=== PATIENT | female | born 1985 | race Caucasian/White ===

== ENCOUNTER 2023-10-15 21:54 | Outpatient (REF) | payer BC, SELFPAY ==
[2023-10-20 15:08] LABS: Age Gdln ACOG Testing Note (.); HPV Aptima Negative (Negative); IGP, Aptima HPV, rfx 16/18,45 Note (.)
== END 2023-10-15 21:55 | disposition home or self-care (01) ==
LOC: LAB 21:54
PROVIDERS: PCP Nurse Practitioner; Visit Provider Obstetrics & Gynecology
DX: Z01.419 Encounter for gynecological examination (general) (routine) without abnormal findings (principal)
CPT/HCPCS: 87624; G0145

== ENCOUNTER 2023-10-16 09:54 | Outpatient (OUT) | payer BC, SELFPAY ==
--- NOTE | 2023-10-16 | US_ITS ---
Patient Name: YOLI IYER MR#: [id number] : 1985 Exam Date: 10/16/2023 Ordering Doctor: JHONATAN HAZEL . RADIOLOGY REPORT PROCEDURE: MM TOMOSYNTHESIS DIAGNOSTIC BI, 10/16/2023, 10:04 US BREAST LT LIMITED, 10/16/2023, 10:38 COMPARISON: [facility] MAMM DIAGNOSTIC 3D DANNA CAD, 02/20/2021. INDICATIONS: left breast pain N64.4, fibrocystre changes lt breast N 60.1 Calculator Name NCI Breast Cancer Risk Assessment Tool 5 Year Breast Cancer Risk 0.40% Lifetime Breast Cancer Risk 11.20% Personal Breast Cancer No Personal Ovarian Cancer No Treatments None Family Cancers Daughter with rhabdomyosarcoma cancer at age 7; Mother with kidney cancer at age 60; Father with pancreas cancer at age 54; Grandmother-maternal with colon cancer at age ~55; Grandfather-paternal with lymphoma cancer at age ~62. LOCATION: [facility] BREAST COMPOSITION: Heterogeneously dense,which may obscure small masses. FINDINGS: DIAGNOSTIC CATEGORY 2--BENIGN FINDING. NO CHANGE FROM COMPARISON. The breasts are stable in size and overall fibroglandular configuration. RIGHT BREAST: No significant suspicious finding. LEFT BREAST: A triangle marker is identified in the upper-outer quadrant, anterior breast demarcating a palpable mass. No mammographic ultrasound. The technologist measured an area hypodensity this is felt to be normal fibroglandular tissue on the cine clips. Further evaluation should be based on clinical physical. RECOMMENDATIONS: CLINICAL EVALUATION. PLEASE NOTE: A NORMAL MAMMOGRAM DOES NOT EXCLUDE THE POSSIBILITY OF BREAST CANCER. A CLINICALLY SUSPICIOUS PALPABLE LUMP SHOULD BE BIOPSIED. Dictated by: Carlos Manuel Ag MD on 10/16/2023 at 11:08 Approved by: Carlos Manuel Ag MD on 10/16/2023 at 11:13
--- OUTSIDE RECORDS SUMMARY | 2023-10-16 09:57 | XMS_ITS | CCD ---
Author Name Unknown Address [address] [place] [address] Organization [facility] Care Team Providers Care Dope Maintenance Worker Name Role Phone SARAH ., DR HOWELL Admitting Unavailable SARAH ., DR HOWELL Consulting Unavailable SARAH ., DR HOWELL Attending Unavailable YAJAIRA ARBOLEDA Admitting Unavailable YAJAIRA ARBOLEDA Attending Unavailable Javi Soriano Consulting Unavailable YAJAIRA ARBOLEDA Consulting Unavailable Jeannette Segura Primary Care Physician [phone] Jeannette Segura Attending Unavailable Jenanette Segura Admitting Unavailable Jeannette Segura Attending Unavailable Allergies Allergy Classification Reported Allergen(s) Allergy Type Date of Onset Reaction(s) Facility (1 source) Penicillin Drug Allergy [facility] Repository (2 sources) Amoxicillin; Translations: [amoxicillin] Drug Allergy [facility] Medications Current Medications Medication Drug Class(es) Dates Sig (Normalized) Sig (Original) adapalene 0.001 mg/mg / benzoyl peroxide 0.025 mg/mg topical gel (1 source) Retinoid Start: 09-16-2023 apply 45 g topically once daily Epiduo Pump 0.1%-2.5% topical gel See Instructions, 45 gm, Refill(s) 1, Topical Daily, [id number], 162, cm, 09/16/23 9:17:00 EST, Height/Length Dosing, 71.3, kg, 09/16/23 9:17:00 EST, Weight Dosing Start Date: 09/16/23 Status: Ordered {84 (Ethinyl Estradiol 0.03 MG / Levonorgestrel 0.15 MG Oral Tablet) / 7 (Inert Ingredients 1 MG Oral Tablet) } Pack [Setlakin ] (1 source) Progestin, Estrogen, Progestin-containin g Intrauterine Device Start: 09-16-2023 take 1 tablet by mouth once daily Setlakin 0.15 mg-30 mcg oral tablet 1 tab(s), Oral, Daily, Refill(s) 0 Start Date: 09/16/23 Status: Ordered meloxicam 15 mg oral tablet (1 source) Nonsteroidal Anti-inflammatory Drug Start: 09-16-2023 take 1 tablet by mouth once daily meloxicam 15 mg Tab 15 mg = 1 tab(s), Oral, Daily, when needed, Refills(s) 0 Start Date: 09/16/23 Status: Ordered Problems Active Problems Problem Classification Problem Date Documented Da te Episodic/Chronic Malaise and fatigue (1 source) Fatigue 09-16-2023 Episodic Nonmalignant breast conditions (1 source) Fibrocystic change of left breast 09-16-2023 Chronic Other connective tissue disease (4 sources) Pain in left foot; Translations: [PAIN IN LEFT FOOT] Onset: 12-10-2022 Episodic Other skin disorders (1 source) Acne 09-16-2023 Episodic Unclassified (1 source) Pain of left breast 09-16-2023 Unclassified (3 sources) Patient encounter status 09-16-2023 Past or Other Problems Problem Classification Problem Date Documented Date Episodic/Chronic Immunizations and screening for infectious disease (1 source) Encounter for screening for human papillomavirus (HPV); Translations: [ENC SCREENING HUMAN PAPILLOMAVIRUS] Onset: 03-28-2022 Episodic Other screening for suspected conditions (not mental disorders or infectious disease) (4 sources) Encounter for screening for malignant neoplasm of cervix; Translations: [ENC SCREENING MALIG NEOPLASM CERV] Onset: 03-25-2022 Episodic Results Test Name Value Interpretation Reference Range Facility Ambulatory Visit Summaryon 1 11-17-2022 Ambulatory Visit Summary YOLI IYER :1985 Visit Date:09/16/2023 Ambulatory Visit Instructions Your Diagnosis BMI 27.0-27.9,adult Non-smoker Your Care Team Attending Physician - Jeannette Mina Primary Care Physician - Jeannette Mina This Is Your Medications List ethinyl estradiol-levonorges trel (Setlakin 0.15 mg-30 mcg oral tablet) meloxicam (meloxicam 15 mg Tab) Procedures Performed section, Surgery. Discharge Vitals Temperature (Tympanic) 36.8 ?C Heart Rate (Peripheral) 78 Respiratory Rate 14 Blood Pressure 126/80 Height 162 cm Height 64 in Weight 71.3 kg Weight 156.86 lb BMI 27.17 Medications What How Much When Instructions Unchanged ethinyl estradiol-levonorges trel (Setlakin 0.15 mg-30 mcg oral tablet) 1 Tablets By Mouth Every day Unchanged meloxicam (meloxicam 15 mg Tab) 1 Tablets By Mouth Every day when needed Allergies amoxicillin Patient Survey You may receive a survey via text or e-mail asking about your office visit. Please share your experience with us by completing your survey. We appreciate your feedback and thank you for choosing us for your care. Normal [facility] Auto Diffon 09-16-2023 Basophils/100 WBC (Bld) 0.7 % Normal 0.0-2.0 [facility] Comment on above: Order Comment: Order Added by Discern Expert. Performed By: #### 2 345704, 67104276, 0866536, 9570847, 8502623, 8269676 #### [facility] [address] [place] [address] Basophils/Leukocytes Auto (Bld) [Pure # fraction] 0.0 E9/L Normal 0.0-0.2 [facility] Comment on above: Order Comment: Order Added by Discern Expert. Performed By: #### 2 513331, 81597840, 4554357, 4100053, 6914006, 4587715 #### [facility] [address] [place] [address] Eosinophils/100 WBC (Bld) 1.6 % Normal 0.0-8.0 [facility] Comment on above: Order Comment: Order Added by Discern Expert. Performed By: #### 2 741014, 59467150, 3378526, 1482592, 5479397, 5490113 #### [facility] [address] [place] [address] Eosinophils/Leukocyte s Auto (Bld) [Pure # fraction] 0.1 E9/L Normal 0.0-0.5 [facility] Comment on above: Order Comment: Order Added by Discern Expert. Performed By: #### 2 766559, 94168925, 1053506, 9067120, 8820022, 7281835 #### [facility] [address] [place] [address] Lymphocytes/100 WBC (Bld) 35.6 % Normal 14.0-50.0 [facility] Comment on above: Order Comment: Order Added by Discern Expert. Performed By: #### 2 042692, 04463950, 2060825, 3176400, 7056758, 4051546 #### [facility] [address] [place] [address] Lymphocytes/Leukocyte s Auto (Bld) [Pure # fraction] 2.2 E9/L Normal 1.0-4.0 [facility] Comment on above: Order Comment: Order Added by Brandee Expert. Performed By: #### 2 870320, 67316960, 7452755, 5958541, 1190358, 3142515 #### [facility] [address] [place] [address] Monocytes/100 WBC (Bld) 9.0 % Normal 4.0-14.0 [facility] Comment on above: Order Comment: Order Added by Brandee Expert. Performed By: #### 2 747886, 23750290, 4689428, 6111089, 4916871, 9639421 #### [facility] [address] [place] [address] Monocytes/Leukocytes Auto (Bld) [Pure # fraction] 0.5 E9/L Normal 0.2-1.0 [facility] Comment on above: Order Comment: Order Added by Brandee Expert. Performed By: #### 2 339833, 64632213, 6268815, 0760325, 6317001, 1266146 #### [facility] [address] [place] [address] Neutrophils/100 WBC (Bld) 53.1 % Normal 36.0-75.0 [facility] Comment on above: Order Comment: Order Added by Brandee Expert. Performed By: #### 2 749425, 93023952, 5456003, 0439222, 4652026, 5576093 #### [facility] [address] [place] [address] Neutrophils/Leukocyte s Auto (Bld) [Pure # fraction] 3.2 E9/L Normal 2.0-7.5 [facility] Comment on above: Order Comment: Order Added by Discern Expert. Performed By: #### 2 322021, 69786592, 7335433, 5113826, 2662130, 1149630 #### [facility] [address] [place] [address] CBC w/ Auto Diffon 3 Erythrocyte distribution width (RBC) [Ratio] 13.6 % Normal 10.9-14.2 [facility] Comment on above: Performed By: #### 2 805800, 77100724, 1357712, 3091262, 8846777, 5737188 #### [facility] [address] [place] [address] Hematocrit (Bld) [Volume fraction] 41.5 % Normal 34.0-46.0 [facility] Comment on above: Performed By: #### 2 278655, 30276179, 0914804, 4827583, 2931036, 4940631 #### [facility] [address] [place] [address] Hemoglobin (Bld) [Mass/Vol] 13.9 g/dL Normal 12.0-16.0 [facility] Comment on above: Performed By: #### 2 584191, 62958893, 8655664, 3142412, 5428367, 9136190 #### [facility] [address] [place] [address] MCH (RBC) [Entitic mass] 29.2 pg Normal 27.0-34.0 [facility] Comment on above: Performed By: #### 2 420571, 42415955, 2525630, 2825058, 1693079, 2092442 #### [facility] [address] [place] [address] MCHC (RBC) [Mass/Vol] 33.4 g/dL Normal 31.4-36.0 [facility] Comment on above: Performed By: #### 2 963266, 70702047, 0509643, 7222350, 9462846, 2254231 #### [facility] [address] [place] [address] MCV (RBC) [Entitic vol] 87.6 fL Normal 80.0-100.0 [facility] Comment on above: Performed By: #### 2 848951, 16329896, 5937769, 1399925, 5578571, 9317821 #### [facility] [address] [place] [address] Platelet mean volume (Bld) [Entitic vol] 10.1 fL Normal 6.4-10.8 [facility] Comment on above: Performed By: #### 2 319784, 55550868, 7846216, 8498587, 5374906, 5017640 #### [facility] [address] [place] [address] Platelets (Bld) [#/Vol] 289.0 E9/L Normal 150.0-500.0 [facility] Comment on above: Performed By: #### 2 685337, 99297394, 9315223, 3212770, 6241894, 3983043 #### [facility] [address] [place] [address] 1939[address] RBC (Bld) [#/Vol] 4.7 E12/L Normal 4.3-5.9 [facility] Comment on above: Performed By: #### 2 833147, 75301986, 3229583, 4611194, 2273458, 1417827 #### [facility] [address] [place] [address] WBC corrected for nucl RBC Auto (Bld) [#/Vol] 6.1 E9/L Normal 4.0-11.0 [facility] Comment on above: Performed By: #### 2 637131, 89612594, 3859180, 7811917, 3992445, 1963587 #### [facility] [address] [place] [address] CHEMISTRYOrdered By: SYSTEM SYSTEM on 09-16-2023 Albumin [Mass/Vol] 4.7 g/dL Normal 3.3 - 5.0 gm/dL [facility] Albumin/Globulin [Mass ratio] 1.6 {ratio} Normal 1.1 - 2.2 [facility] Alk Phos 70 [iU]/d Normal 21 - 98 Int._Unit/L [facility] ALT 10 [iU]/d Normal 6 - 46 Int._Unit/L [facility] Anion gap [Moles/Vol] 10 mmol/L Normal 6 - 16 mEq/L R [facility] AST 15 [iU]/d Normal 5 - 43 Int._Unit/L [facility] Bili Total 0.4 mg/dL Normal 0.0 - 1.1 mg/dL [facility] Calcium [Mass/Vol] 9.7 mg/dL Normal 8.9 - 11. 1 mg/dL [facility] Chloride [Moles/Vol] 104 mmol/L Normal 101 - 1 11 mmol/L [facility] Cholesterol [Mass/Vol] 158 mg/dL Normal 120 - 200 mg/dL [facility] Cholesterol in HDL [Mass/Vol] 49 mg/dL Invalid Interpretation Code [facility] Comment on above: Result Comment: '>= 60 LOW RISK' '<= 40 HIGH RISK' Cholesterol in LDL [Mass/Vol] 110 mg/dL Normal <=129mg/dL [facility] Cholesterol in VLDL [Mass/Vol] 17 mg/dL Normal 7 - 40 mg/dL [facility] CO2 [Moles/Vol] 28 mmol/L Normal 21 - 31 mmol/L [facility] Creatinine [Mass/Vol] 0.8 mg/dL Normal 0.5 - 1.3 mg/dL [facility] eGFR mL/min/1.73 m2 Normal >=59mL/min/1. 73 m2 [facility] Globulin (S) [Mass/Vol] 3.0 g/dL Normal 1.4 - 4.0 gm/dL [facility] Glucose [Mass/Vol] 88 mg/dL Normal 55 - 199 mg/dL [facility] Potassium [Moles/Vol] 4.1 mmol/L Normal 3.5 - 5.3 mmol/L [facility] Protein [Mass/Vol] 7.7 g/dL Normal 6.0 - 7.8 gm/dL [facility] Sodium [Moles/Vol] 138 mmol/L Normal 135 - 145 mmol/L [facility] Triglyceride [Mass/Vol] 84 mg/dL Normal <=149mg/dL [facility] TSH Qn 3.22 m[IU]/L Normal 0.34 - 5.60 mcIU/mL [facility] Urea nitrogen [Mass/Vol] 10 mg/dL Normal 5 - 21 mg/dL [facility] Urea nitrogen/Creatinine [Mass ratio] 12 mg/mg Normal 10 - 20 [facility] CMPon 09-16-2023 Albumin [Mass/Vol] 4.7 g/dL Normal 3.3-5.0 [facility] Comment on above: Performed By: #### 2 917013, 35243360, 8461786, 0362950, 1908257, 4157318 #### [facility] [address] [place] [address] Albumin/Globulin [Mass ratio] 1.6 {ratio} Normal 1.1-2.2 [facility] Comment on above: Performed By: #### 2 596089, 48014534, 5260018, 4861194, 6454910, 7272246 #### [facility] [address] [place] [address] Alk Phos 70 Int._Unit/L Normal 21-98 [facility] Comment on above: Performed By: #### 2 122203, 25099232, 2573071, 8509096, 6845044, 1340946 #### [facility] [address] [place] [address] ALT 10 Int._Unit/L Normal 6-46 [facility] Comment on above: Performed By: #### 2 929894, 79518758, 4350763, 5190168, 7446998, 4945492 #### [facility] [address] [place] [address] Anion gap [Moles/Vol] 10 mmol/L Normal 6-16 [facility] Comment on above: Performed By: #### 2 518222, 82973840, 6305349, 2307450, 7585819, 0227122 #### [facility] [address] [place] [address] AST 15 Int._Unit/L Normal 5-43 [facility] Comment on above: Performed By: #### 2 578656, 30897835, 3486232, 6475579, 2759489, 5803886 #### [facility] [address] [place] [address] Bili Total 0.4 mg/dL Normal 0.0-1.1 [facility] Comment on above: Performed By: #### 2 146690, 85056174, 4817243, 0342891, 4737790, 3999939 #### [facility] [address] [place] [address] BUN/Creat Ratio 12 No Units Normal 10-20 [facility] Comment on above: Performed By: #### 2 357394, 58322034, 9165428, 3513467, 5927761, 7257536 #### [facility] [address] [place] [address] Calcium [Mass/Vol] 9.7 mg/dL Normal 8.9-11.1 [facility] Comment on above: Performed By: #### 2 860427, 67060222, 9872044, 3650273, 7545377, 5696107 #### [facility] [address] [place] [address] Chloride [Moles/Vol] 104 mmol/L Normal 101-111 [facility] Comment on above: Performed By: #### 2 848753, 12079909, 4824225, 1933147, 9914325, 2379462 #### [facility] [address] [place] [address] CO2 [Moles/Vol] 28 mmol/L Normal 21-31 [facility] Comment on above: Performed By: #### 2 708264, 04891017, 6352267, 5589022, 9188458, 0397752 #### [facility] [address] [place] [address] Creatinine [Mass/Vol] 0.8 mg/dL Normal 0.5-1.3 [facility] Comment on above: Performed By: #### 2 095592, 78649271, 1957257, 2281046, 7691657, 8936861 #### [facility] [address] [place] [address] Globulin (S) [Mass/Vol] 3.0 g/dL Normal 1.4-4.0 [facility] Comment on above: Performed By: #### 2 523707, 12016109, 7968568, 9559944, 1195679, 4688817 #### [facility] [address] [place] [address] Glucose [Mass/Vol] 88 mg/dL Normal 55-199 [facility] Comment on above: Performed By: #### 2 079083, 26157523, 5376626, 1201869, 3067745, 5209441 #### [facility] [address] [place] [address] Potassium [Moles/Vol] 4.1 mmol/L Normal 3.5-5.3 [facility] Comment on above: Performed By: #### 2 315635, 70695845, 3997899, 1498923, 7737184, 5931955 #### [facility] [address] [place] [address] Protein [Mass/Vol] 7.7 g/dL Normal 6.0-7.8 [facility] Comment on above: Performed By: #### 2 535316, 63090473, 9791874, 1984537, 3066040, 6716479 #### [facility] [address] [place] [address] Sodium [Moles/Vol] 138 mmol/L Normal 135-145 [facility] Comment on above: Performed By: #### 2 366838, 05973977, 1817348, 0998381, 4307714, 2708269 #### [facility] [address] [place] [address] Urea nitrogen [Mass/Vol] 10 mg/dL Normal 5-21 [facility] Comment on above: Performed By: #### 2 172344, 87006828, 2942039, 1384303, 8186077, 6102515 #### [facility] [address] [place] [address] Family Medicine Office/Clini c Noteon 09-16-2023 Family Medicine Office/Clinic Note HPI Staff Yoli is a 38 year old female presenting to [facility] Establish Care: History: Any previous diagnosis: History of seeing any specialist: When was your last doctors visit: Last provider: none in the last year Any recent labs: Dr Schwarz Health Maintenance UTD: Colonoscopy: no Mammogram: 2 years ago [facility] normal Pelvic/Pap: 2021 Dr Campbell Acute: Current issues/complaints: Left Breast intermittent ache ongoing for 2 months , previous mammogram was told they were dense 10 years: feels right lower quadrant pain radiating to right flank, has has multiple scan through [facility] and everything was normal and has been old she was full of stool. States she tries to take a daily stool softner History of Present Illness pt presents today for wellness visit. is also c/o fatigue and left sided breast pain Review of Systems PHQ Score Initial Depression Screen Score: 0 SCORE ROS - Provider Constitutional: no fever, no chills, no sweats, no fatigue Respiratory: no shortness of breath, no cough, no orthopnea, no wheezing. Cardiovascular: no chest pain, no palpitations, no edema. Neurologic: no headache, no dizziness, no numbness, no weakness. Physical Exam Vitals & Measurements T: 36.8 ?C(Tympanic) HR: 78(Peripheral) RR: 14 BP: 126/80 SpO2: 99% HT: 64 in HT: 162 cm WT: 71.3 kg WT: 156.86 lb BMI: 27.17 General: alert, no acute distress ENMT: oral mucosa moist, no pharyngeal erythema or exudate Cardiovascular: regular rate and rhythm, normal peripheral perfusion Respiratory: Lungs CTA, respirations non labored Extremities: no deformity, no trauma Neurological: oriented x 4, LOC appropriate for age, CN II-XII intact, motor strength equal & normal bilaterally, speech normal Assessment/Plan 1. Wellness examination (Z00.00: Encounter for general adult medical examination without abnormal findings) pt presents today for wellness visit and to establish care. pt has left breast pain. and lower abdominal pain. the abdominal pain has been worked up and she was told she has constipation issues. discussed changing her diet and taking stool softeners. will think about GI consult. all questions answered. RTC as needed Ordered: adapalene-benzoyl peroxide topical, See Instructions, 45 gm, Refill(s) 1, Topical Daily, [id number], 162, cm, 09/16/23 9:17:00 EST, Height/Length Dosing, 71.3, kg, 09/16/23 9:17:00 EST, Weight Dosing CBC w/ Auto Diff Comprehensive Metabolic Panel Lipid Panel Thyroid Stimulating Hormone 2. Fibrocystic changes of left breast (N60.12: Diffuse cystic mastopathy of left breast) pt breast tissue is very dense and she has noticed some changes of tissue on left side. order for mammogram provided and faxed to [facility] Ordered: adapalene-benzoyl peroxide topical, See Instructions, 45 gm, Refill(s) 1, Topical Daily, [facility][id number], 162, cm, 09/16/23 9:17:00 EST, Height/Length Dosing, 71.3, kg, 09/16/23 9:17:00 EST, Weight Dosing CBC w/ Auto Diff Comprehensive Metabolic Panel Lipid Panel Thyroid Stimulating Hormone 3. Breast pain, left (N64.4: Mastodynia) pt c/o left breast pain Ordered: adapalene-benzoyl peroxide topical, See Instructions, 45 gm, Refill(s) 1, Topical Daily, [facility][id number], 162, cm, 09/16/23 9:17:00 EST, Height/Length Dosing, 71.3, kg, 09/16/23 9:17:00 EST, Weight Dosing CBC w/ Auto Diff Comprehensive Metabolic Panel Lipid Panel Thyroid Stimulating Hormone 4. Acne (L70.9: Acne, unspecified) Ordered: adapalene-benzoyl peroxide topical, See Instructions, 45 gm, Refill(s) 1, Topical Daily, [facility] #[id number], 162, cm, 12/19/23 9:17:00 EST, Height/Length Dosing, 71.3, kg, 09/16/23 9:17:00 EST, Weight Dosing CBC w/ Auto Diff Comprehensive Metabolic Panel Lipid Panel Thyroid Stimulating Hormone 5. Fatigue (R53.83: Other fatigue) pt c/o worsening fatigue. labs drawn today Ordered: adapalene-benzoyl peroxide topical, See Instructions, 45 gm, Refill(s) 1, Topical Daily, [facility][id number], 162, cm, 09/16/23 9:17:00 EST, Height/Length Dosing, 71.3, kg, 09/16/23 9:17:00 EST, Weight Dosing CBC w/ Auto Diff Comprehensive Metabolic Panel Lipid Panel Thyroid Stimulating Hormone 6. Screening for hyperlipidemia (Z13.220: Encounter for screening for lipoid disorders) lipid panel drawn Ordered: adapalene-benzoyl peroxide topical, See Instructions, 45 gm, Refill(s) 1, Topical Daily, [facility] #[id number], 162, cm, 09/16/23 9:17:00 EST, Height/Length Dosing, 71.3, kg, 09/16/23 9:17:00 EST, Weight Dosing 7. Screening for thyroid disorder (Z13.29: Encounter for screening for other suspected endocrine disorder) TSH drawn today Ordered: adapalene-benzoyl peroxide topical, See Instructions, 45 gm, Refill(s) 1, Topical Daily, [facility] #[id number], 162, cm, 09/16/23 9:17:00 EST, Height/Length Dosing, 71.3, kg, 09/16/23 9:17:00 EST, Weight Dosing 8. BMI 27.0-27.9,adult (Z68.27: Body mass index [BMI] 27.0-27.9, adult) BMI education complete Ordered: adapalene-elis (more content not included)... [facility] Comment on above: Result Comment: Elec tronically Signed By: Jeannette Mina\.br\Date and Time Signed: 09/16/23 10:59 EST [employer] 09-16-2023 Forms [id number] #1.00TIFF [facility] HEMATOLOGYOrdered By: SYSTEM SYSTEM on 09-16-2023 Basophils/100 WBC (Bld) 0.7 % Normal 0.0 - 2.0 % [facility] Basophils/Leukocytes Auto (Bld) [Pure # fraction] 0.0 E9/L Normal 0.0 - 0.2 E9/L [facility] Eosinophils/100 WBC (Bld) 1.6 % Normal 0.0 - 8.0 % [facility] Eosinophils/Leukocyte s Auto (Bld) [Pure # fraction] 0.1 E9/L Normal 0.0 - 0.5 E9/L [facility] Lymphocytes/100 WBC (Bld) 35.6 % Normal 14.0 - 50.0 % [facility] Lymphocytes/Leukocyte s Auto (Bld) [Pure # fraction] 2.2 E9/L Normal 1.0 - 4.0 E9/L [facility] Monocytes/100 WBC (Bld) 9.0 % Normal 4.0 - 14.0 % [facility] Monocytes/Leukocytes Auto (Bld) [Pure # fraction] 0.5 E9/L Normal 0.2 - 1.0 E9/L [facility] Neutrophils/100 WBC (Bld) 53.1 % Normal 36.0 - 75.0 % [facility] Neutrophils/Leukocyte s Auto (Bld) [Pure # fraction] 3.2 E9/L Normal 2.0 - 7.5 E9/L [facility] HEMATOLOGYOrdered By: Angelito Trejo on 09-16-2023 Erythrocyte distribution width (RBC) [Ratio] 13.6 % Normal 10.9 - 14.2 % [facility] Hematocrit (Bld) [Volume fraction] 41.5 % Normal 34.0 - 46.0 % [facility] Hemoglobin (Bld) [Mass/Vol] 13.9 g/dL Normal 12.0 - 16.0 gm/dL [facility] MCH (RBC) [Entitic mass] 29.2 pg Normal 27.0 - 34.0 pg [facility] MCHC (RBC) [Mass/Vol] 33.4 g/dL Normal 31.4 - 36.0 gm/dL [facility] MCV (RBC) [Entitic vol] 87.6 fL Normal 80.0 - 100.0 fL [facility] Platelet mean volume (Bld) [Entitic vol] 10.1 fL Normal 6.4 - 10.8 fL [facility] Platelets (Bld) [#/Vol] 289.0 E9/L Normal 150.0 - 500.0 E9/L [facility] RBC (Bld) [#/Vol] 4.7 E12/L Normal 4.3 - 5.9 E12/L [facility] WBC corrected for nucl RBC Auto (Bld) [#/Vol] 6.1 E9/L Normal 4.0 - 11.0 E9/L [facility] Lipid Panelon 09-16-2023 Cholesterol [Mass/Vol] 158 mg/dL Normal 120-200 [facility] Comment on above: Performed By: #### 2 806672, 79697954, 3414643, 9716040, 6379778, 7817201 #### [facility] [address] [place] [address] Cholesterol in HDL [Mass/Vol] 49 mg/dL Invalid Interpretation Code [facility] Comment on above: Result Comment: '>= 60 LOW RISK' '<= 40 HIGH RISK' Performed By: #### 2 619167, 54365608, 5949388, 1815103, 2620099, 2349512 #### [facility] [address] [place] [address] Cholesterol in LDL [Mass/Vol] 110 mg/dL Normal <=129 [facility] Comment on above: Performed By: #### 2 597992, 02533798, 0164313, 9804700, 8551818, 8072627 #### [facility] [address] [place] [address] Cholesterol in VLDL [Mass/Vol] 17 mg/dL Normal 7-40 [facility] Comment on above: Performed By: #### 2 321303, 67387485, 9926798, 3459176, 8001027, 7285392 #### [facility] [address] [place] [address] Triglyceride [Mass/Vol] 84 mg/dL Normal <=149 [facility] Comment on above: Performed By: #### 2 255654, 26456646, 9087144, 6531932, 8151538, 2022197 #### [facility] [address] [place] [address] Physician Orderon 09-16-2023 Physician Order [id number] #[id number] Normal [facility] TSHon 09-16-2023 TSH Qn 3.22 m[IU]/L Normal 0.34-5.60 [facility] Comment on above: Performed By: #### 2 897385, 02762148, 2997552, 8432420, 9447125, 0626883 #### [facility] [address] [place] [address] eGFRon 09-16-2023 GFR/1.73 sq M.predicted among non-blacks MDRD (S/P/Bld) [Vol rate/Area] mL/min/{1.73_m2} Normal >=59 [facility] Comment on above: Order Comment: Order added by Discern Expert. Performed By: #### [id number] #### [facility] [address] [place] [address] PAP ACOG PANEL 2: 30 to 65on 03-28-2022 . . Normal [facility] Comment on above: Result Comment: Perf ormed at: WB Performed By: #### [id number] #### [facility] [address] [place] [address] Dr. Jovi Jones Age Gdln ACOG Testing 30-65 Normal [facility] Comment on above: Performed By: #### [id number] #### [facility] [address] [address] [address] Jovi Jones DIAGNOSIS: Comment Normal [facility] Comment on above: Result Comment: NEGA TIVE FOR INTRAEPITHELIAL LESION OR MALIGNANCY. Performed at: WB Performed By: #### [id number] #### [facility] [address] [place] [address] Dr. Jovi Jones HPV Aptima Negative Normal Negative [facility] Comment on above: Result Comment: This nucleic acid amplification test detects fourteen high-risk HPV types (16,18,31,33,35,39,45,51,52,56,58,59,66,68) without differentiation. Performed at: =G Performed By: #### [id number] #### [facility] [address] [place] [address] Dr. Jovi Jones Methodology: Comment Normal [facility] Comment on above: Result Comment: This liquid based ThinPrep(R) pap test was screened with the use of an image guided system. Performed at: WB Performed By: #### [id number] #### [facility] [address] [place] [address] Dr. Jovi Jones Note: Comment Normal [facility] Comment on above: Result Comment: The Pap smear is a screening test designed to aid in the detection of premalignant and malignant conditions of the uterine cervix. It is not a diagnostic procedure and should not be used as the sole means of detecting cervical cancer. Both false-positive and false-negative reports do occur. . Performed at: WB Performed By: #### [id number] #### [facility] [address] [place] [address] Dr. Jovi Jones Performed by: Comment Normal [facility] Comment on above: Result Comment: Emily Candelaria, Treatment Technician Performed at: WB Performed By: #### [id number] #### [facility] [address] [place] [address] Dr. Jovi Jones Specimen adequacy: Comment Normal [facility] Comment on above: Result Comment: Sati sfactory for evaluation. Endocervical and/or squamous metaplastic cells (endocervical component) are present. Performed at: WB Performed By: #### [id number] #### [facility] [address] [place] [address] Dr. Jovi Jones Encounters Encounter Date Encounter Type Care Provider Facility Start: 09-16-2023 End: 09-17-2023 [facility] Facility[facility] Start: 09-16-2023 End: 09-16-2023 Lab Drop off Jeannette L Imelda [facility] Start: 09-16-2023 End: 09-17-2023 ambulatory Jeannette L Imelda Facility:[facility] Start: 08-28-2023 ambulatory Jeannette Imelda Facility: [facility] Start: 12-10-2022 End: 12-11-2022 ambulatory YAJAIRA ARBOLEDA Facility: Start: 03-25-2022 End: 03-25-[address] DANTE SMITH . Facility:[facility] Procedures Date Procedure Procedure Detail Performing Clinician section Jeannette Imelda Comment on above: 2012 Surgery (qualifier value) Farrah di Imelda Comment on above: 2020 Immunizations Immunization Date Immunization Notes Care Provider Moris paul 04-20-2023 tetanus toxoid, redu neymar diphtheria toxoid, and acellular pertussis vaccine, adsorbed Jeannette Imelda [facility] 12-22-2012 tetanus toxoid, redu neymar diphtheria toxoid, and acellular pertussis vaccine, adsorbed Jeannette Imelda [facility] Payers Date Payer Category Payer Unknown [id number] 2.16.84 [id number] 1985 Unknown [id number] 2.16.84 [id number] 1985 Unknown [id number] 2.16.8 [id number] 1986 Unknown [id number] 2.16.8 [id number] 1986 Unknown [id number] 2.16.8 [id number] 1959 Unknown [id number] 1958 Unknown [id number] Social History Date Type Detail Facility Start: 09-16-2023 Tobacco smoking status Never s moked tobacco (finding) [facility] Tobacco smoking status Never Yeny [facility] Sex Assigned At Female [facility] Clinical Note 12-10-2022 Note Date & Type Note Facility 12-10-2022 Note PROCEDURE: XR FOOT L T MIN 3 VIEWS HISTORY: Pain in left foot ; chronic left heel pain COMPARISON: None. FINDINGS: BONES:No fracture, acute abnormality, or significant arthropathy. SOFT TISSUES:No visible soft tissue swelling. EFFUSION:None visible. OTHER: Negative. IMPRESSION: 1. No abnormal or suspicious findings to account for patient's symptoms. Electronically authenticated by: JAVI SORIANO Date: 2022-12-10 16:27 [facility] Evaluation + Plan note Note Date & Type Note [facility] Evaluation + Plan note No data available for this section [facility] Hospital Discharge instructions Note Date & Type Note Facility Hospital Discharge instructions No data available for this section [facility] Progress note Note Date & Type Note Facility Progress note No data available for this section [facility] Summary Purpose Family History No Family History Records Found No data available for this section No Family History Records Found Advance Directives No Advanced Directives Records FoundNo Advanced Directives Records Found Additional Source Comments INFORMATION SOURCE (unrecogn ized section and content) DATE CREATED AUTHOR 01/02/2023 [facility] DATE CREATED AUTHOR AUTHOR'S ORGANIZ ATION 09/17/2023 [facility] Patient Care team informatio n (unrecognized section and content) Personnel Name: Jeannette Mina Address: Address: [address] [place] [address]- FOR RECORDS PERTAINING TO PATIENTS WHO ARE OR HAVE BEEN ENROLLED IN A CHEMICAL DEPENDENCY/SUBSTANCEABUSE PROGRAM, SOME INFORMATION MAY BE OMITTED. This clinical summary was aggregated from multiple sources. Caution should be exercised in using it in the provision of clinical care. This summary normalizes information from multiple sources, and as a consequence, information in this document may materially change the coding, format and clinical context of patient data. In addition, data may be omitted in some cases. CLINICAL DECISIONS SHOULD BE BASED ON THE PRIMARY CLINICAL RECORDS. [facility] provides no warranty or guarantee of the accuracy or completeness of information in this document.
--- NOTE | 2023-10-16 10:01 | MM_ITS ---
Patient Name: YOLI IYER MR#: [id number] : 1985 Exam Date: 10/16/2023 Ordering Doctor: JHONATAN HAZEL . RADIOLOGY REPORT PROCEDURE: MM TOMOSYNTHESIS DIAGNOSTIC BI, 10/16/2023, 10:04 US BREAST LT LIMITED, 10/16/2023, 10:38 COMPARISON: MG MAMM DIAGNOSTIC 3D DANNA CAD, 02/20/2021. INDICATIONS: left breast pain N64.4, fibrocystre changes lt breast N 60.1 Calculator Name NCI Breast Cancer Risk Assessment Tool 5 Year Breast Cancer Risk 0.40% Lifetime Breast Cancer Risk 11.20% Personal Breast Cancer No Personal Ovarian Cancer No Treatments None Family Cancers Daughter with rhabdomyosarcoma cancer at age 7; Mother with kidney cancer at age 60; Father with pancreas cancer at age 54; Grandmother-maternal with colon cancer at age ~55; Grandfather-paternal with lymphoma cancer at age ~62. LOCATION: [facility] BREAST COMPOSITION: Heterogeneously dense,which may obscure small masses. FINDINGS: DIAGNOSTIC CATEGORY 2--BENIGN FINDING. NO CHANGE FROM COMPARISON. The breasts are stable in size and overall fibroglandular configuration. RIGHT BREAST: No significant suspicious finding. LEFT BREAST: A triangle marker is identified in the upper-outer quadrant, anterior breast demarcating a palpable mass. No mammographic ultrasound. The technologist measured an area hypodensity this is felt to be normal fibroglandular tissue on the cine clips. Further evaluation should be based on clinical physical. RECOMMENDATIONS: CLINICAL EVALUATION. PLEASE NOTE: A NORMAL MAMMOGRAM DOES NOT EXCLUDE THE POSSIBILITY OF BREAST CANCER. A CLINICALLY SUSPICIOUS PALPABLE LUMP SHOULD BE BIOPSIED. Dictated by: Carlos Manuel Ag MD on 10/16/2023 at 11:08 Approved by: Carlos Manuel Ag MD on 10/16/2023 at 11:13
== END 2023-10-16 09:55 | disposition home or self-care (01) ==
LOC: MAMMO 09:54
PROVIDERS: PCP Nurse Practitioner; Visit Provider Nurse Practitioner
DX: N64.4 Mastodynia (principal); N60.12 Diffuse cystic mastopathy of left breast; Z80.51 Family history of malignant neoplasm of kidney; Z80.0 Family history of malignant neoplasm of digestive organs; Z80.7 Family history of other malignant neoplasms of lymphoid, hematopoietic and related tissues; Z80.8 Family history of malignant neoplasm of other organs or systems
CPT/HCPCS: 76642; 77066; G0279

== ENCOUNTER 2024-10-20 19:16 | Outpatient (REF) | payer BC, SELFPAY ==
--- OUTSIDE RECORDS SUMMARY | 2024-10-20 19:20 | XMS_ITS | CCD ---
Author Organization [facility] Care Team Providers Care Press Assistant And Feeder Name Role Phone VISHAL ., DR HOWELL Admitting Unavailable VISHAL ., DR HOWELL Consulting Unavailable VISHAL ., DR HOWELL Attending Unavailable YAJAIRA ARBOLEDA Admitting Unavailable NKECHIYAJAIRA Attending Unavailable Javi Soriano Consulting Unavailable NKECHIYAJAIRA DONOVAN Consulting Unavailable Jeannette Segura Primary Care Physician [phone] DANTE RODGERS Attending Unavailable ImeldaJeannette Attending Unavailable ImeldaJeannette Admitting Unavailable ImeldaJeannette Attending Unavailable ImeldaJeannette Attending Unavailable DOC, [facility] Primary Care Unavailable WILMAR COLLIER Referring Unavailable WILMAR COLLIER Attending Unavailable DOC, [facility] Referring Unavailable DOC, [facility] Primary Care Unavailable ACACIA BURR Attending Unavailable DOC, [facility] Primary Care Unavailable ACACIA BURR Attending Unavailable REFERRED, SELF Referring Unavailable Doc , [facility] Primary Care Provider UnavailAcacia Mcgowan [facility]GC Unavailable Unavail able Jeannette Segura MD Primary Care Provider Allergies Allergy Classification Reported Allergen(s) Allergy Type Date of Onset Reaction(s) Facility (1 source) Penicillin Drug Allergy [facility] Repository (3 sources) Amoxicillin; Translations: [amoxicillin] Drug Allergy 10-13-2023 Other [facility] [place] (1 source) Penicillin G Drug Allergy 10-13-2023 Unknown [facility] Medications Current Medications Medication Drug Class(es) Dates Sig (Normalized) Sig (Original) adapalene 0.001 mg/mg / benzoyl peroxide 0.025 mg/mg topical gel (1 source) Retinoid Start: 09-16-2023 apply 45 g topically once daily Epiduo Pump 0.1%-2.5% topical gel See Instructions, 45 gm, Refill(s) 1, Topical Daily, [facility] #[id number], 162, cm, 09/16/23 9:17:00 EST, Height/Length Dosing, 71.3, kg, 09/16/23 9:17:00 EST, Weight Dosing Start Date: 09/16/23 Status: Ordered Ethinyl Estradiol / Levonorgestrel (2 sources) Progestin, Estrogen, Progestin-containin g Intrauterine Device Start: 10-15-2023 levonorgestrel-e thinyl estradiol (Setlakin) 0.15-0.03 MG tablet Indications: control counseling Take 1 tablet by mouth in the morning. 91 tablet 3 10/15/2023 Active Start: 09-16-2023 take 1 tablet by tor th once daily Setlakin 0.15 mg-30 mcg oral tablet 1 tab(s), Oral, Daily, Refill(s) 0 Start Date: 09/16/23 Status: Ordered meloxicam 15 mg oral tablet (2 sources) Nonsteroidal Anti-inflammatory Drug Start: 11-23-2022 take 1 tablet by mouth once daily meloxicam 15 mg Tab 15 mg = 1 tab(s), Oral, Daily, when needed, Refills(s) 0 Start Date: 09/16/23 Status: Ordered Multiple Vitamins-Mineral s (MULTIVITAMIN GUMMIES ADULT PO) (1 source) Multiple Vitamins-Minerals (MULTIVITAMIN GUMMIES ADULT PO) Multivitamin Gummies Adult Active Problems Active Problems Problem Classification Problem Date [...] SCREENING MALIG NEOPLASM CERV] Onset: 03-25-2022 Episodic Residual codes; unclassified (2 sources) Family history of malignant neoplasm of pancreas; Translations: [Family history of malignant neoplasm of digestive organs] Onset: 03-09-2024 03-17-2024 Episodic Results Test Name Value Interpretation Reference Range Facility Family Medicine Office/Clini c Noteon 03-24-2024 Family Medicine Office/Clinic Note HPI Staff Yoli is a 39 year old female presenting for yearly physical Health Maintenance: Colonoscopy: no Dexa: no Mammo: 10/16/23 Pap: 09/2023 normal Last Labs: 09/16/23 Pt thanks she has a yeast infection. pt has discharge and itching Pt having constipation History of Present Illness pt presents today with c/o vaginal discharge and itching and constipation Review of Systems PHQ Score Initial Depression Screen Score: 0 SCORE Physical Exam Vitals & Measurements HR: 84(Peripheral) RR: 18 BP: 120/68 SpO2: 97% HT: 64 in HT: 162.0 cm WT: 77.6 kg WT: 170.72 lb BMI: 29.57 General: alert, no acute distress ENMT: oral mucosa moist, no pharyngeal erythema or exudate Cardiovascular: regular rate and rhythm, normal peripheral perfusion Respiratory: Lungs CTA, respirations non labored Extremities: no deformity, no trauma Neurological: oriented x 4, LOC appropriate for age, CN II-XII intact, motor strength equal & normal bilaterally, speech normal Assessment/Plan 1. Vaginal yeast infection (B37.31: Acute candidiasis of vulva and vagina) vaginal discharge and itching. gets them frequently. will send diflucan with refills. Ordered: fluconazole, 150 mg = 1 tab(s), Oral, Once, take 1 tab on day one and 1 tab on day four, # 2 tab(s), Refills(s) 1, [facility]: [facility] #[id number], 162, cm, 03/24/24 15:15:00 EDT, Height/Length Dosing, 77.6, kg, 03/24/24 15:15:00 EDT, Weight Dosing polyethylene glycol 3350, 17 gm, Oral, Daily, # 238 gm, Refills(s) 1, [facility]acy: [facility] #[id number], 162, cm, 03/24/24 15:15:00 EDT, Height/Length Dosing, 77.6, kg, 03/24/24 15:15:00 EDT, Weight Dosing 2. Constipation (K59.00: Constipation, unspecified) will order miralax. discusses foods that cause constipation. pt loves cheese. Ordered: fluconazole, 150 mg = 1 tab(s), Oral, Once, take 1 tab on day one and 1 tab on day four, # 2 tab(s), Refills(s) 1, Pharmacy: [facility] #[id number], 162, cm, 03/24/24 15:15:00 EDT, Height/Length Dosing, 77.6, kg, 03/24/24 15:15:00 EDT, Weight Dosing polyethylene glycol 3350, 17 gm, Oral, Daily, # 238 gm, Refills(s) 1, Pharmacy: [facility] #[id number], 162, cm, 03/24/24 15:15:00 EDT, Height/Length Dosing, 77.6, kg, 03/24/24 15:15:00 EDT, Weight Dosing 3. BMI 29.0-29.9,adult (Z68.29: Body mass index [BMI] 29.0-29.9, adult) BMI education Ordered: fluconazole, 150 mg = 1 tab(s), Oral, Once, take 1 tab on day one and 1 tab on day four, # 2 tab(s), Refills(s) 1, Pharmacy: [facility] #[id number], 162, cm, 03/24/24 15:15:00 EDT, Height/Length Dosing, 77.6, kg, 03/24/24 15:15:00 EDT, Weight Dosing polyethylene glycol 3350, 17 gm, Oral, Daily, # 238 gm, Refills(s) 1, Pharmacy: [facility] #[id number], 162, cm, 03/24/24 15:15:00 EDT, Height/Length Dosing, 77.6, kg, 03/24/24 15:15:00 EDT, Weight Dosing 4. Non-smoker (Z78.9: Other specified health status) continue not smoking Ordered: fluconazole, 150 mg = 1 tab(s), Oral, Once, take 1 tab on day one and 1 tab on day four, # 2 tab(s), Refills(s) 1, [facility]: [facility] #[id number], 162, cm, 03/24/24 15:15:00 EDT, Height/Length Dosing, 77.6, kg, 03/24/24 15:15:00 EDT, Weight Dosing polyethylene glycol 3350, 17 gm, Oral, Daily, # 238 gm, Refills(s) 1, Pharmacy: [facility] #[id number], 162, cm, 03/24/24 15:15:00 EDT, Height/Length Dosing, 77.6, kg, 03/24/24 15:15:00 EDT, Weight Dosing Follow-up No qualifying data available Problem List/Past Medical History Ongoing Acne Breast pain, left Constipation Fatigue Fibrocystic changes of left breast Screening for hyperlipidemia Screening for thyroid disorder Vaginal yeast infection Wellness examination Historical No qualifying data Procedure/Surgical History section, Surgery. Medications Diflucan 150 mg Tab, 150 mg= 1 tab(s), Oral, Once, 1 refills Epiduo Pump 0.1%-2.5% topical gel, See Instructions, 1 refills meloxicam 15 mg Tab, 15 mg= 1 tab(s), Oral, Daily Miralax 3350 17 gram packet, 17 gm, Oral, Daily, 1 refills Setlakin 0.15 mg-30 mcg oral tablet, 1 tab(s), Oral, Daily Allergies amoxicillin Social History Tobacco Never (less than 100 in lifetime) Tobacco Use:. Never Smokeless Tobacco Use:. Household tobacco concerns: No., 09/16/2023 Family History Cancer: Mother, Father, Grandparent and Other Relationship. Diabetes mellitus type 2: Grandparent. Immunizations Vaccine Date Status diphtheria/pertussis , acel/tetanus adult 04/20/2023 Recorded diphtheria/pertussis , acel/tetanus adult 12/22/2012 Recorded Normal [facility] Comment on above: Result Comment: Elec tronically Signed By: Jeannette Mina.jesi\Date and Time Signed: 03/24/24 16:28 EDT GENETIC SENDOUTon 03-17-2024 Genetic Test Name CustomNext Panel Normal [facility] Comment on above: Order Comment: Name of Test:->CustomNext Panel Billing type:->Direct Specimen Type->Blood Specimen requirements:->3-5 mL EDTA/PAX Specimen Tube->EDTA and PAX What is the sendout facility name, if known?->Amb[facility] Performed By: #### 1 170 #### [facility] [address] Genetic Test Reference Lab [facility] Comment on above: Order Comment: Name of Test:->CustomNext Panel Billing type:->Direct Specimen Type->Blood Specimen requirements:->3-5 mL EDTA/PAX Specimen Tube->EDTA and PAX What is the sendout facility name, if known?->[facility]ry Performed By: #### 1 170 #### [facility] [address] See Scanned Results Patient results scanned into [facility] Comment on above: Order Comment: Name of Test:->CustomNext Panel Billing type:->Direct Specimen Type->Blood Specimen requirements:->3-5 mL EDTA/PAX Specimen Tube->EDTA and PAX What is the sendout facility name, if known?->Ambry Performed By: #### 1 170 #### [facility] [address] Outside Mammographyon 2023 Outside Mammography [id number]# 1.00TIFF Normal [facility] RAD - Ultrasound Reporton RAD - Ultrasound Report [id number] #1.00TIFF Normal [facility] Ambulatory Visit Summaryon 1 11-17-2022 Ambulatory Visit Summary YOLI MANDEL :1985 Visit Date:09/16/2023 Ambulatory Visit Instructions Your [...] for choosing us for your care. Normal [facility] Auto Diffon 09-16-2023 Basophils/100 WBC (Bld) 0.7 % Normal 0.0-2.0 [facility] Comment on above: Order Comment: Order Added by Discern Expert. Performed By: #### 2 766495, 04147036, 3151755, 0047869, 9875263, 4339653 #### [facility] [address] [place] [address] Basophils/Leukocytes Auto (Bld) [Pure # fraction] 0.0 E9/L Normal 0.0-0.2 [facility] Comment on above: Order Comment: Order Added by Discern Expert. Performed By: #### 2 350667, 44224283, 4338822, 9467343, 1603913, 3735908 #### [facility] [address] [place] [address] Eosinophils/100 WBC (Bld) 1.6 % Normal 0.0-8.0 [facility] Comment on above: Order Comment: Order Added by Discern Expert. Performed By: #### 2 376916, 56815697, 7610411, 3548887, 8571301, 5555303 #### [facility] [address] [place] [address] Eosinophils/Leukocyte s Auto (Bld) [Pure # fraction] 0.1 E9/L Normal 0.0-0.5 [facility] Comment on above: Order Comment: Order Added by Discern Expert. Performed By: #### 2 266770, 13331592, 4237414, 2746249, 6418643, 2987436 #### [facility] [address] [place] [address] Lymphocytes/100 WBC (Bld) 35.6 % Normal 14.0-50.0 [facility] Comment on above: Order Comment: Order Added by Discern Expert. Performed By: #### 2 886080, 82546640, 5083727, 9130529, 7490406, 9884254 #### [facility] [address] [place] [address] Lymphocytes/Leukocyte s Auto (Bld) [Pure # fraction] 2.2 E9/L Normal 1.0-4.0 [facility] Comment on above: Order Comment: Order Added by Brandee Expert. Performed By: #### 2 303762, 67642916, 7869753, 3031693, 7102992, 2338010 #### [facility] [address] [place] [address] Monocytes/100 WBC (Bld) 9.0 % Normal 4.0-14.0 [facility] Comment on above: Order Comment: Order Added by Brandee Expert. Performed By: #### 2 296298, 55203562, 5282051, 0760990, 9845210, 1778167 #### [facility] [address] [place] [address] Monocytes/Leukocytes Auto (Bld) [Pure # fraction] 0.5 E9/L Normal 0.2-1.0 [facility] Comment on above: Order Comment: Order Added by Brandee Expert. Performed By: #### 2 412604, 66555625, 1028900, 8830711, 2461353, 5850708 #### [facility] [address] [place] [address] Neutrophils/100 WBC (Bld) 53.1 % Normal 36.0-75.0 [facility] Comment on above: Order Comment: Order Added by Brandee Expert. Performed By: #### 2 559268, 31203001, 1257260, 8122554, 0013943, 1142592 #### [facility] [address] [place] [address] Neutrophils/Leukocyte s Auto (Bld) [Pure # fraction] 3.2 E9/L Normal 2.0-7.5 [facility] Comment on above: Order Comment: Order Added by Discern Expert. Performed By: #### 2 368507, 82709298, 7628595, 9911148, 9821817, 5919801 #### [facility] [address] [place] [address] CBC w/ Auto Diffon 3 Erythrocyte distribution width (RBC) [Ratio] 13.6 % Normal 10.9-14.2 [facility] Comment on above: Performed By: #### 2 388892, 90275229, 8780279, 2529110, 7704476, 1055475 #### [facility] [address] [place] [address] Hematocrit (Bld) [Volume fraction] 41.5 % Normal 34.0-46.0 [facility] Comment on above: Performed By: #### 2 241335, 98961439, 9986737, 0086807, 0224727, 7895474 #### [facility] [address] [place] [address] Hemoglobin (Bld) [Mass/Vol] 13.9 g/dL Normal 12.0-16.0 [facility] Comment on above: Performed By: #### 2 556247, 73472743, 0340620, 6383222, 5457642, 5015747 #### [facility] [address] [place] [address] MCH (RBC) [Entitic mass] 29.2 pg Normal 27.0-34.0 [facility] Comment on above: Performed By: #### 2 982798, 70180452, 7038203, 4402985, 7069127, 1095860 #### [facility] [address] [place] [address] MCHC (RBC) [Mass/Vol] 33.4 g/dL Normal 31.4-36.0 [facility] Comment on above: Performed By: #### 2 150632, 95794657, 9724796, 6864659, 4959719, 4815369 #### [facility] [address] [place] [address] MCV (RBC) [Entitic vol] 87.6 fL Normal 80.0-100.0 [facility] Comment on above: Performed By: #### 2 382925, 18158467, 6203236, 4590517, 3664196, 6617493 #### [facility] [address] [place] [address] Platelet mean volume (Bld) [Entitic vol] 10.1 fL Normal 6.4-10.8 [facility] Comment on above: Performed By: #### 2 434462, 71341786, 3071052, 0288832, 0342377, 1273907 #### [facility] [address] [place] [address] Platelets (Bld) [#/Vol] 289.0 E9/L Normal 150.0-500.0 [facility] Comment on above: Performed By: #### 2 403749, 68106398, 8984587, 2469737, 7443601, 8136245 #### [facility] [address] [place], [place] [address] RBC (Bld) [#/Vol] 4.7 E12/L Normal 4.3-5.9 [facility] Comment on above: Performed By: #### 2 447392, 85726520, 8926086, 2388538, 9578241, 9797584 #### [facility] [address] [place] [address] WBC corrected for nucl RBC Auto (Bld) [#/Vol] 6.1 E9/L Normal 4.0-11.0 [facility] Comment on above: Performed By: #### 2 604544, 29893528, 1259329, 9505347, 1877230, 2367958 #### [facility] [address] [id number] CHEMISTRYOrdered By: SYSTEM SYSTEM on 09-16-2023 Albumin [...] 09-16-2023 Albumin [Mass/Vol] 4.7 g/dL Normal 3.3-5.0 [facility] Comment on above: Performed By: #### 2 028245, 94432982, 4067404, 6001685, 5039941, 9791456 #### [facility] [address] [place] [address] Albumin/Globulin [Mass ratio] 1.6 {ratio} Normal 1.1-2.2 [facility] Comment on above: Performed By: #### 2 414892, 74069197, 5766098, 1928920, 0890989, 0937630 #### [facility] [address] [place] [address] Alk Phos 70 Int._Unit/L Normal 21-98 [facility] Comment on above: Performed By: #### 2 820853, 61036463, 3267443, 3963203, 7812982, 8019711 #### [facility] [address] [place] [address] ALT 10 Int._Unit/L Normal 6-46 [facility] Comment on above: Performed By: #### 2 731486, 30641366, 5086047, 7017247, 9404934, 2439434 #### [facility] [address] [place] [address] Anion gap [Moles/Vol] 10 mmol/L Normal 6-16 [facility] Comment on above: Performed By: #### 2 620982, 89453301, 7052294, 8572161, 4447439, 5353389 #### [facility] [address] [place] [address] AST 15 Int._Unit/L Normal 5-43 [facility] Comment on above: Performed By: #### 2 855132, 04706231, 3495710, 3926782, 8599994, 5132695 #### [facility] [address] [place] [address] Bili Total 0.4 mg/dL Normal 0.0-1.1 [facility] Comment on above: Performed By: #### 2 793322, 31070045, 7019563, 6519614, 2482307, 9112495 #### [facility] [address] [place] [address] BUN/Creat Ratio 12 No Units Normal 10-20 [facility] Comment on above: Performed By: #### 2 233516, 22268277, 2760609, 7244748, 6298771, 6379642 #### [facility] [address] [place] [address] Calcium [Mass/Vol] 9.7 mg/dL Normal 8.9-11.1 [facility] Comment on above: Performed By: #### 2 685682, 65279769, 7003527, 3316813, 7824471, 0247373 #### [facility] [address] [place] [address] Chloride [Moles/Vol] 104 mmol/L Normal 101-111 [facility] Comment on above: Performed By: #### 2 570386, 05927239, 0220346, 8415901, 6690001, 8608588 #### [facility] [address] [place] [address] CO2 [Moles/Vol] 28 mmol/L Normal 21-31 [facility] Comment on above: Performed By: #### 2 955038, 41294600, 7846386, 4905611, 1417856, 9864563 #### [facility] [address] [place] [address] Creatinine [Mass/Vol] 0.8 mg/dL Normal 0.5-1.3 [facility] Comment on above: Performed By: #### 2 862204, 68186753, 9732831, 4435924, 9650224, 7696184 #### [facility] [address] [place] [address] Globulin (S) [Mass/Vol] 3.0 g/dL Normal 1.4-4.0 [facility] Comment on above: Performed By: #### 2 583712, 40034953, 2955001, 3606572, 9267477, 2064442 #### [facility] [address] [place] [address] Glucose [Mass/Vol] 88 mg/dL Normal 55-199 [facility] Comment on above: Performed By: #### 2 402410, 44616472, 7660238, 1478180, 1530297, 4828516 #### [facility] [address] [place] [address] Potassium [Moles/Vol] 4.1 mmol/L Normal 3.5-5.3 [facility] Comment on above: Performed By: #### 2 656156, 25196538, 1983540, 7081027, 5597630, 0992931 #### [facility] [address] [place] [address] Protein [Mass/Vol] 7.7 g/dL Normal 6.0-7.8 [facility] Comment on above: Performed By: #### 2 900614, 97449802, 8256730, 0716362, 4753761, 4393950 #### [facility] [address] [place] [address] Sodium [Moles/Vol] 138 mmol/L Normal 135-145 [facility] Comment on above: Performed By: #### 2 610867, 00571716, 5916681, 0588620, 2376305, 6424408 #### [facility] [address] [place] [address] Urea nitrogen [Mass/Vol] 10 mg/dL Normal 5-21 [facility] Comment on above: Performed By: #### 2 170268, 04359810, 2483023, 2515759, 5286833, 1585184 #### [facility] [address] [place] [address] Family Medicine Office/Clini c Noteon 09-16-2023 Family Medicine Office/Clinic Note HPI Staff Yoli is a 38 year old female presenting to [facility] Establish Care: History: Any previous diagnosis: History of seeing any specialist: When was your last doctors visit: Last provider: none in the last year Any recent labs: Dr Schwazr Health Maintenance UTD: Colonoscopy: no Mammogram: 2 years ago [facility] normal Pelvic/Pap: 2021 Dr Campbell Acute: Current issues/complaints: Left Breast intermittent ache ongoing for 2 months , previous mammogram was told they were dense 10 years: feels right lower quadrant pain radiating to right flank, has has multiple scan through [facility] and everything was normal and has been [...] gm, Refill(s) 1, Topical Daily, [facility] #[id number], 162, cm, 09/16/23 9:17:00 EST, Height/Length Dosing, 71.3, kg, 09/16/23 9:17:00 EST, Weight Dosing CBC w/ Auto Diff Comprehensive Metabolic Panel Lipid Panel Thyroid Stimulating Hormone 2. Fibrocystic changes of left breast (N60.12: Diffuse cystic mastopathy of left breast) pt breast tissue is very dense and she has noticed some changes of tissue on left side. order for mammogram provided and faxed to [facility] Ordered: adapalene-benzoyl peroxide topical, See Instructions, 45 gm, Refill(s) 1, Topical Daily, [facility] #[id number], 162, cm, 09/16/23 9:17:00 EST, Height/Length Dosing, 71.3, kg, 09/16/23 9:17:00 EST, Weight Dosing CBC w/ Auto Diff Comprehensive Metabolic Panel Lipid Panel Thyroid Stimulating Hormone 3. Breast pain, left (N64.4: Mastodynia) pt c/o left breast pain Ordered: adapalene-benzoyl peroxide topical, See Instructions, 45 gm, Refill(s) 1, Topical Daily, [facility] #[id number], 162, cm, 09/16/23 9:17:00 EST, Height/Length Dosing, 71.3, kg, 09/16/23 9:17:00 EST, Weight Dosing CBC w/ Auto Diff Comprehensive Metabolic Panel Lipid Panel Thyroid Stimulating Hormone 4. Acne (L70.9: Acne, unspecified) Ordered: adapalene-benzoyl peroxide topical, See Instructions, 45 gm, Refill(s) 1, Topical Daily, [facility] #[id number], 162, cm, 09/16/23 9:17:00 EST, Height/Length Dosing, 71.3, kg, 09/16/23 9:17:00 EST, Weight Dosing CBC w/ Auto Diff Comprehensive Metabolic Panel Lipid Panel Thyroid Stimulating Hormone 5. Fatigue (R53.83: Other fatigue) pt c/o worsening fatigue. labs drawn today Ordered: adapalene-benzoyl peroxide topical, See Instructions, 45 gm, Refill(s) 1, Topical Daily, [facility] #29643, 162, cm, 09/16/23 9:17:00 EST, Height/Length Dosing, 71.3, kg, 09/16/23 9:17:00 EST, Weight Dosing CBC w/ Auto Diff Comprehensive Metabolic Panel Lipid Panel Thyroid Stimulating Hormone 6. Screening for hyperlipidemia (Z13.220: Encounter for screening for lipoid disorders) lipid panel drawn Ordered: adapalene-benzoyl peroxide topical, See Instructions, 45 gm, Refill(s) 1, Topical Daily, [facility] #[id number], 162, cm, 09/16/23 9:17:00 EST, Height/Length Dosing, 71.3, kg, 09/16/23 9:17:00 EST, Weight Dosing 7. Screening for thyroid disorder (Z13.29: Encounter for screening for other suspected endocrine disorder) TSH drawn today Ordered: adapalene-benzoyl peroxide topical, See Instructions, 45 gm, Refill(s) 1, Topical Daily, [facility] #[id number], 162, cm, 09/16/23 9:17:00 EST, Height/Length Dosing, 71.3, kg, 09/16/23 9:17:00 EST, Weight Dosing 8. BMI 27.0-27.9,adult (Z68.27: Body mass index [BMI] 27.0-27.9, adult) BMI education complete Ordered: adapalene-elis (more content not included)... [facility] Comment on above: Result Comment: Elec tronically Signed By: Jeannette Mina\.br\Date and Time Signed: 09/16/23 10:59 EST [employer] 09-16-2023 Forms [id number] #1.00TIFF [facility] HEMATOLOGYOrdered By: SYSTEM SYSTEM on 09-16-2023 Basophils/100 [...] fL Normal 80.0 - 100.0 fL [facility] HemeAutoSS Platelet mean volume (Bld) [Entitic vol] 10.1 fL Normal 6.4 - 10.8 fL [facility] HemeAutoSS Platelets (Bld) [#/Vol] 289.0 E9/L Normal 150.0 - 500.0 E9/L [facility] HemeAutoSS RBC (Bld) [#/Vol] 4.7 E12/L Normal 4.3 - 5.9 E12/L [facility] HemeAutoSS WBC corrected for nucl RBC Auto (Bld) [#/Vol] 6.1 E9/L Normal 4.0 - 11.0 E9/L [facility]eAutoSS Lipid Panelon 09-16-2023 Cholesterol [Mass/Vol] 158 mg/dL Normal 120-200 [facility] Comment on above: Performed By: #### 2 [id number], [id number], [id number], [id number], [id number] #### [facility] [address] [place] [address] Cholesterol in HDL [Mass/Vol] 49 mg/dL Invalid Interpretation Code [facility] Comment on above: Result Comment: '>= 60 LOW RISK' '<= 40 HIGH RISK' Performed By: #### 2 [id number], [id number], [id number], [id number], [id number], [id number] #### [facility] [address] [place] [address] Cholesterol in LDL [Mass/Vol] 110 mg/dL Normal <=129 [facility] Comment on above: Performed By: #### 2 [id number], [id number], 8402626, 3707054, 5582885, [id number] #### [facility] [address] [place] [address] Cholesterol in VLDL [Mass/Vol] 17 mg/dL Normal 7-40 [facility] Comment on above: Performed By: #### 2 [id number], [id number], [id number], 5358591, 7590010, 4510831 #### [facility] [address] [place] [address] Triglyceride [Mass/Vol] 84 mg/dL Normal <=149 [facility] Comment on above: Performed By: #### 2 [id number], [id number], 2485448, 4058080, 0555247, [id number] #### [facility] [address] [place] [address] Physician Orderon 09-16-2023 Physician Order [id number] #[id number] Normal [facility] TSHon 09-16-2023 TSH Qn 3.22 m[IU]/L Normal 0.34-5.60 [facility] Comment on above: Performed By: #### 2 [id number], [id number], 2145789, 8434075, 7237051, 5274297 #### [facility] [address] [place] [address] eGFRon 09-16-2023 GFR/1.73 sq M.predicted among non-blacks MDRD (S/P/Bld) [Vol rate/Area] mL/min/{1.73_m2} Normal >=59 [facility] Comment on above: Order Comment: Order added by Discern Expert. Performed By: #### 2 [id number], [id number], 1901191, 6403640, 6055190, [id number] #### [facility] [address] [place] [address] PAP ACOG PANEL 2: 30 to 65on 03-28-[address] [facility] Comment on above: Result Comment: Perf ormed at: WB Performed By: #### 4 [id number] #### [facility] [address] [place] [address] Dr. Jovi Jones Age Gdln ACOG Testing - Normal [facility] Comment on above: Performed By: #### 4 [id number] #### [facility] [address] [place] [address] Dr. Jovi Jones DIAGNOSIS: Comment [facility] Comment on above: Result Comment: NEGA TIVE FOR INTRAEPITHELIAL LESION OR MALIGNANCY. Performed at: WB Performed By: #### 4 [id number] #### [facility] [address] [place] [address] Dr. Jovi Jones HPV Aptima Negative Normal Negative [facility] Comment on above: Result Comment: This nucleic acid amplification test detects fourteen high-risk HPV types (16,18,31,33,35,39,45,51,52,56,58,59,66,68) without differentiation. Performed at: =G Performed By: #### 4 [id number] #### [facility] [address] [address] [address] Jovi Jones Methodology: Comment Normal [facility] Comment on above: Result Comment: This liquid based ThinPrep(R) pap test was screened with the use of an image guided system. Performed at: WB Performed By: #### 4 [id number] #### [facility] [address] [place] [address] Dr. Jovi Jones Note: Comment Normal [facility] Comment on above: Result Comment: The Pap smear is a screening test designed to aid in the detection of premalignant and malignant conditions of the uterine cervix. It is not a diagnostic procedure and should not be used as the sole means of detecting cervical cancer. Both false-positive and false-negative reports do occur. . Performed at: WB Performed By: #### 4 [id number] #### [facility] [address] [place] [address] Dr. Jovi Jones Performed by: Comment Normal [facility] Comment on above: Result Comment: Emily Candelaria, [employer]wn [employer] Professional Performed at: WB Performed By: #### 4 [id number] #### [facility] [address] [place] [address] Dr. Jovi Jones Specimen adequacy: Comment Normal [facility] Comment on above: Result Comment: Sati sfactory for evaluation. Endocervical and/or squamous metaplastic cells (endocervical component) are present. Performed at: WB Performed By: #### 4 [id number] #### [facility] [address] [place] [address] Dr. Jovi Jones Encounters Encounter Date Encounter Type Care Provider Facility Start: 10-20-2024 End: 10-20-2024 Bamboo flowsheet Dante Rodgers DO Work Phone: [facility] Start: 10-20-2024 End: 10-20-2024 Bamboo flowsheet Dante Cunninghamo DO Work Phone: [facility] Start: 04-19-2024 End: 04-19-2024 ambulatory MISC [facility] Start: 03-24-2024 End: 03-24-2024 ambulatory Jeannette L Imelda Facility:[facility] Start: 03-17-2024 End: 03-17-2024 Subsequent hospital visit by physician Wilmar Collier MD Work Phone: [facility] Comment on above: Family history of pa ncreatic cancer Start: 03-17-2024 End: 03-17-2024 ambulatory [facility] Start: 03-09-2024 End: 03-09-2024 ambulatory [facility] Start: 10-15-2023 End: 10-15-2023 ambulatory DANTE RODGERS Not Available Start: 09-16-2023 End: 09-16-2023 ambulatory Jeannette L Imelda Facility:[facility] Start: 09-16-2023 End: 09-16-2023 Lab Drop off Jeannette L Imelda [facility] Start: 09-16-2023 End: 09-16-2023 ambulatory Jeannette L Imelda Facility:[facility] Start: 08-28-2023 ambulatory Jeannette Imelda Facility:[facility] Start: 12-10-2022 End: 12-11-2022 ambulatory YAJAIRA ARBOLEDA Facility:[facility] Start: 03-25-2022 End: 03-25-[address] DANTE RODGERS . Facility:[facility] Procedures Date Procedure Procedure Detail Performing Clinician section Jeannette Imelda Comment on above: 2012 Surgery (qualifier value) Farrah di Imelda Comment on above: 2020 Plan of Treatment Date Care Activity Detail Author Start: 05-30-2024 FLU (Season Ended) FLU (Season Ended ) [facility] Start: 05-30-2023 COVID-19 (2022- 4 season) COVID-19 ( season) [facility] Start: 2007 Microscopic observat ion [Identifier] in Cervix by Cyto stain Pap Smear [facility] Start: 2005 Hepatitis B (1 of 3 - 19+ 3-dose series) Hepatitis B (1 of 3 - 19+ 3-dose series) [facility] Start: 2002 MenB (1 of 2 - MenB 2-Dose Series Bexsero) MenB (1 of 2 - MenB 2-Dose Series Bexsero) [facility] Start: 1999 Varicella (1 of 2 - 13+ 2-dose series) Varicella (1 of 2 - 13+ 2-dose series) [facility] Start: 1993 Tetanus Diphtheria a nd Pertussis Vaccines (1 - Tdap) Tetanus Diphtheria and Pertussis Vaccines (1 - Tdap) [facility] Start: 1987 MMR (1 of 1 - Standa rd series) MMR (1 of 1 - Standard series) [facility] End: 03-17-2024 Genetic Sendout: [employer] Panel [facility] Work Phone: Comment on above: 1 Occurrences starti ng 03/17/2024 until 03/17/2024 Immunizations Immunization Date Immunization Notes Care Provider Moris paul 04-20-2023 tetanus toxoid, redu neymar diphtheria toxoid, and acellular pertussis vaccine, adsorbed Jeannette Imelda [facility] 12-22-2012 tetanus toxoid, redu neymar diphtheria toxoid, and acellular pertussis vaccine, adsorbed Jeannette Imelda [facility] Payers Date Payer Category Payer [employer] Blue [employer] BCBS [id number] 2022 Unknown ANTHEM ANTHEM [employer] BS PPO [id number] 2022-Present [address] [place] [address] [id number] 1986 Unknown [id number] 1986 Unknown [id number] [id number] .593 1986 Unknown [id number] [id number] .1259 1986 Unknown [id number] [id number] .727 1986 Unknown [id number] [id number] .727 1986 Unknown [id number] [id number] .727 1986 Unknown [id number] [id number] .727 1986 Unknown [id number] [id number] .479 1986 Unknown [id number] [id number] .479 1982 Unknown [id number] [id number] .479 1959 Unknown [id number] 1959 Unknown [id number] Social History Date Type Detail Facility Start: 05-21-2023 End: 09-16-2023 Tobacco smoking status Never smoked tobacco (finding) [facility] Tobacco smoking status Never [facility] Start: 05-21-2023 Sex Assigned At Female [facility] Tobacco smoking stat [facility] Tobacco smoking consumption unknown [facility] Start: 1986 Sex assigned at Not on file [facility] Start: 05-21-2023 Tobacco use and exposure Smokeless tobacco non-user [facility] Start: 10-15-2023 Alcoholic beverage intake Lifetime non-drinker (finding) [facility] Start: 05-21-2023 History of Social function [facility] Start: 1986 Sex assigned at Female N [facility] Start: 05-23-2023 Gender identity Identifies as female gender (finding) [facility] Clinical Note 12-10-2022 Note Date & Type [...] authenticated by: JAVI SORIANO Date: 2022-12-10 16:27 [facility] Evaluation + Plan note Note Date & Type Note Facility Evaluation + Plan note No data available for this section [facility] Evaluation note Note Date & Type Note Facility Evaluation note Diagnosis Family history of pancreatic cancer Family history of malignant neoplasm of gastrointestinal tract documented in this encounter [facility] Discharge instructions Note Date & Type Note Facility Hospital Discharge instructions No data available for this section [facility] Progress note Note Date & Type Note Facility Progress note No data available for this section [facility] Reason for referral (narrative) Referral (Routine) - Open Note Date & Type Note Facility Reason for referral (narrati ve) Specialty Diagnoses / Procedures Referred By Cyndi tamayo Referred To Contact Diagnoses Family history of pancreatic cancer Procedures Genetic Sendout: [place] [address] Referral ID Status Reason Start Date Expiration Date V isits Requested Visits Authorized [id number] Open Specialty Services Required 03/09/2024 03/09/2025 1 1 [facility] Reason for visit Narrative Referral (Routine) - Open Note Date & Type Note Facility Reason for visit Narrative Specialty Diagnoses / Procedures Referred By Cyndi tamayo Referred To Contact Diagnoses Family history of pancreatic cancer Procedures Genetic Sendout: [place] [address] Referral ID Status Reason Start Date Expiration Date V isits Requested Visits Authorized [id number] Open Specialty Services Required 03/09/2024 03/09/2025 1 1 [facility] Summary Purpose Family History No Family History Records Found No data available for this section No Family History Records FoundNo Family History Records FoundNo Family History Records Found Advance Directives No Advanced Directives Records FoundNo Advanced Directives Records FoundNo Advanced Directives Records FoundNo Advanced Directives Records Found Additional Source Comments INFORMATION SOURCE (unrecogn ized section and content) DATE CREATED AUTHOR 01/02/2023 [facility] DATE CREATED AUTHOR AUTHOR'S ORGANIZ ATION 10/16/2023 [facility] DATE CREATED AUTHOR AUTHOR'S ORGANIZ ATION 03/26/2024 [facility] DATE CREATED AUTHOR AUTHOR'S ORGANIZ ATION 04/22/2024 [facility] Patient Care team informatio n (unrecognized section and content) [employer] Assistant [employer]eder Relationship Specialty Start Date [place] [address] PCP - General Pediatrics 03/09/24 [place] [address] Genetic Counselor Genetics 03/09/24 [employer] Assistant [employer] Feeder Relationship Specialty Start Date End Date Jeannette Segura MD [address] [id number] PCP - General 05/23/23 FOR RECORDS PERTAINING TO PATIENTS WHO ARE [...] BE BASED ON THE PRIMARY CLINICAL RECORDS. [employer] [facility]. provides no warranty or guarantee of the accuracy or completeness of information in this document.
[2024-10-26 17:07] LABS: Age Gdln ACOG Testing Note (.); HPV Aptima Negative (Negative); IGP, Aptima HPV, rfx 16/18,45 Note (.)
== END 2024-10-20 19:17 | disposition home or self-care (01) ==
LOC: LAB 19:16
PROVIDERS: Visit Provider Obstetrics & Gynecology
DX: Z01.419 Encounter for gynecological examination (general) (routine) without abnormal findings (principal)
CPT/HCPCS: 87624; 88175